=== PATIENT | female | born 1980 | race Two or more races ===

== ENCOUNTER → 2020-09-17 | Outpatient (CLI) | payer OTHER ==
[~2020-09-17] MED LIST: [UNRECOGNIZED DRUG - OTHER]; [UNRECOGNIZED DRUG - OTHER]
== END | disposition home or self-care (01) ==
LOC: PRENATAL 14:30
PROVIDERS: ATTEND Obstetrics & Gynecology Maternal & Fetal Medicine
DX: O35.0XX1 Maternal care for (suspected) central nervous system malformation in fetus, fetus 1 (principal); O35.3XX1 Maternal care for (suspected) damage to fetus from viral disease in mother, fetus 1; O98.512 Other viral diseases complicating pregnancy, second trimester; Z36.89 Encounter for other specified antenatal screening; Z3A.20 20 weeks gestation of pregnancy

== ENCOUNTER 2020-12-12 16:22 | Inpatient (IN) | payer OTHER ==
[~2020-12-12] VITALS: Ht 160 cm; Wt 93.0 kg
[2020-12-12] MEDS ORDERED: CHILDREN'S ASPI81 MG PO (16:48)
[2020-12-12] MEDS ORDERED: PEPCID AC20 MG PO (16:49)
[2020-12-12] MEDS ORDERED: PRENATAL CAPLE1 EAC1 PO (16:49)
== END 2020-12-14 10:51 | disposition home or self-care (01) | DRG 833 ==
LOC: LDR 16:22 → OB/GYN 12-13 16:25
PROVIDERS: ADMIT Obstetrics & Gynecology; ATTEND Obstetrics & Gynecology
PROC: 4A1HXFZ Monitoring of Products of Conception, Cardiac Rhythm, External Approach (ICD-10-PCS; principal; 2020-12-12)
DX: O47.03 False labor before 37 completed weeks of gestation, third trimester (principal); Z3A.32 32 weeks gestation of pregnancy; Z20.822 Contact with and (suspected) exposure to COVID-19

== ENCOUNTER 2021-01-02 17:00 | Inpatient (IN) | payer OTHER ==
[~2021-01-02] VITALS: Ht 160 cm; Wt 3.2 kg
[~2021-01-02 17:00] MED LIST changes: +CHILDREN'S ASPI81 MG PO; +PEPCID AC20 MG PO; +PRENATAL CAPLE1 EAC1 PO
[2021-01-02] MEDS ORDERED: FOLIC ACID20 MG PO (18:34)
[2021-01-02] MEDS ORDERED: CLARITIN10 M1 PO (18:35)
[2021-01-12] MEDS ORDERED: IBUPROFEN800 MG PO (08:29)
[2021-01-12] MEDS ORDERED: GUAIATUSSIN AC10 ML PO (08:30)
== END 2021-01-12 11:29 | disposition home or self-care (01) | DRG 784 ==
LOC: LDR 17:00 → OB/GYN 17:00 → LDR 01-03 15:10 → OB/GYN 01-04 08:45
PROVIDERS: ADMIT Obstetrics & Gynecology; ATTEND Obstetrics & Gynecology
PROC: 4A1HXFZ Monitoring of Products of Conception, Cardiac Rhythm, External Approach (ICD-10-PCS; 2021-01-02)
PROC: 0UB70ZZ Excision of Bilateral Fallopian Tubes, Open Approach (ICD-10-PCS; 2021-01-09)
PROC: 10D00Z1 Extraction of Products of Conception, Low, Open Approach (ICD-10-PCS; principal; 2021-01-09 17:00)
DX: O14.03 Mild to moderate pre-eclampsia, third trimester (principal); O99.513 Diseases of the respiratory system complicating pregnancy, third trimester; J21.9 Acute bronchiolitis, unspecified; J45.909 Unspecified asthma, uncomplicated; O34.211 Maternal care for low transverse scar from previous cesarean delivery; O32.1XX0 Maternal care for breech presentation, not applicable or unspecified; Z30.2 Encounter for sterilization; Z3A.35 35 weeks gestation of pregnancy; Z37.0 Single live birth; Z20.822 Contact with and (suspected) exposure to COVID-19

== ENCOUNTER 2024-10-19 05:20 | Day surgery (SDC) | payer OTHER ==
[2024-10-12 08:50] LABS: HEMATOCRIT 36.2 % (36.0-45.00); HEMOGLOBIN 11.7 g/dL (12.0-15.00); MEAN CELL VOLUME 72.2 fL (80.00-100.00); MEAN CORPUSCULAR HEMOGLOBIN 23.3 pg (27.00-32.0); MEAN CORPUSCULAR HGB CONC 32.3 g/dl (32.0-36.0); PLATELET COUNT 283 K/uL (150-450); RED BLOOD COUNT 5.01 M/uL (4.00-6.00); RED CELL DISTRIBUTION WIDTH 17.7 % (11.5-14.5)
[2024-10-12 09:29] LABS: ALBUMIN 3.9 gm/dL (3.4-5.0); BILIRUBIN TOTAL 0.48 mg/dL (0.3-1.2); CALCIUM 8.9 mg/dL (8.5-10.1); CREATININE SERUM 0.71 mg/dL (0.55-1.02); GFR 89.85; GLOBULINA 3.8 G/DL (2.4-3.5); INR 1.01; POTASSIUM 4.06 mEq/L (3.5-5.1); TOTAL PROTEIN 7.7 gm/dL (6.4-8.2)
[2024-10-12 09:51] LABS: URINE APPEARANCE Cloudy; URINE BACTERIA 3086.6 uL (0.0-1933); URINE BILIRRUBIN Negative (NEGATIVE); URINE BLOOD Negative; URINE COLOR Yellow; URINE EPITHELIAL CELLS 99.7 uL (0.0-38.8); URINE GLUCOSE Negative (NEGATIVE); URINE KETONE Negative (NEGATIVE); URINE LEUKOCYTE Negative; URINE NITRATE Negative; URINE PROTEIN 30 (NEGATIVE); URINE RBC 12.2 uL (0.0-20.8); URINE WBC 7.2 uL (0.0-23.2)
[2024-10-12 09:52] LABS: URINE CAST 0.14 uL (0.0-1.40)
[~2024-10-19 05:20] MED LIST changes: +CLARITIN10 M1 PO; +FOLIC ACID20 MG PO; +GUAIATUSSIN AC10 ML PO; +IBUPROFEN800 MG PO
[2024-10-19] MEDS ORDERED: CEFAZOLIN SODIUM 1,000 MG VIAL ONE ×2 (06:14→07:16)
[2024-10-19] MEDS ORDERED: POVIDONE-IODINE 118 ML BOTT TOP ONE ×2 (07:26→08:15)
[2024-10-19] MEDS ORDERED: CEFAZOLIN SODIUM 1,000 MG VIAL IV ONE (08:15)
[2024-10-19] MEDS ORDERED: NAPROXEN500 MG PO (08:43)
[2024-10-19] MEDS ORDERED: DOXYCYCLINE HY100 M2 PO (08:43)
[2024-10-19] MEDS ORDERED: MORPHINE SULFATE 4 MG/ML VIAL IV ONE (10:40)
== END 2024-10-19 11:40 | disposition home or self-care (01) ==
LOC: CIR.AMB 05:20
PROVIDERS: ATTEND Obstetrics & Gynecology
DX: D25.0 Submucous leiomyoma of uterus (principal); N84.0 Polyp of corpus uteri; N72 Inflammatory disease of cervix uteri